=== PATIENT | female | born 1945 | race Two or more races ===

== ENCOUNTER 2017-04-11 20:26 | Inpatient (IN) | payer MEDICARE, MEDICAID ==
[~2017-04-11] VITALS: Ht 162.6 cm; Wt 60.1 kg
[~2017-04-11 20:26] MED LIST: insulin; metoprolol
[2017-04-11] MEDS ORDERED: SODIUM CHLORIDE 0.9% 1,000 ML IVB ONE (20:31)
[2017-04-11 20:59] LABS: Basophils # (auto) 0 uL; Basophils % (auto) 0.2 % (0.0-2.0); CONDITION Y; DEFINITIVE SEE PRINTOUT; Eosinophils # (auto) 0 uL; Hematocrit 32.6 % (36.0-46.0); Lymphocytes % (auto) 32.8 % (10.0-50.0); Mean Corpuscular Hemoglobin 35.8 pg (28.0-32.0); Mean Corpuscular Hgb Conc. 33.6 g/dL (32.0-36.0); Mean Corpuscular Volume 106.3 fL (80.0-100.0); Mean Platelet Volume 10.1 fL (7.4-10.4); Monocytes # (auto) 0.4 uL; Monocytes % (auto) 6.7 % (0.0-12.0); Neutrophils # (auto) 3.8 uL; Neutrophils % (auto) 60.3 % (37.0-80.0); Platelet Count (auto) 127 10^3/uL (140-450); Red Cell Distribution Width 13.9 % (11.6-16.0); White Blood Cell 6.2 10^3/uL (4.4-10.8)
[2017-04-11] MEDS ORDERED: SODIUM CHLORIDE 0.9% 500 ML IVB ONE (21:08)
[2017-04-11 21:16] LABS: INR 1.04 (0.9-1.15); Partial Thromboplastin Time 23.1 sec (22.64-33.71); Prothrombin Time 11.3 sec (9.37-12.3)
[2017-04-11 21:21] LABS: Albumin 3.5 g/dL (3.4-5.0); BUN/Creatinine Ratio 7.5; Bilirubin, Total 0.5 mg/dL (0.2-1.0); Calcium 9.2 mg/dL (8.5-10.1); Magnesium 3.1 mg/dL (1.6-2.6); Total Protein 7.2 g/dL (6.4-8.2)
[2017-04-11 21:25] LABS: B-Type Natriuretic Peptide 730.33 pg/mL (0-100)
[2017-04-11 21:26] LABS: Potassium 5.6 mmol/L (3.5-5.1)
[2017-04-11 21:29] LABS: Temperature: 23.9 C (20.0-25.0)
[2017-04-11] MEDS ORDERED: InsuLIN REG 1unit/0.01ml Soln (100units/ml) IV ONE (22:15)
[2017-04-12] MEDS ORDERED: NITROGLYCERIN 0.4 MG SL TAB SL PRN (00:15)
[2017-04-12] MEDS ORDERED: MORPHINE SULF INJ 2 MG/ML SYRINGE 1ML IV PRN (00:15)
[2017-04-12] MEDS ORDERED: SODIUM POLYSTYRENE SULF 15GM/60ML SUSP PO ONE ×2 (00:15→06:00)
[2017-04-12] MEDS ORDERED: ONDANSETRON HCL 4 MG/2 ML VIAL IV PRN (00:15)
[2017-04-12] MEDS ORDERED: FUROSEMIDE 40 MG/4 ML VIAL IV ONE (00:15)
[2017-04-12] MEDS ORDERED: TEMAZEPAM 15 MG CAP PO PRN (00:15)
[2017-04-12] MEDS ORDERED: DEXTROSE (50%) 50ML SYRG IV PRN (00:15)
[2017-04-12] MEDS ORDERED: ACETAMINOPHEN 325 MG TAB PO PRN (00:15)
[2017-04-12] MEDS: HYDROcodone-ACET 5/325MG TAB PO PRN (00:46)
[2017-04-12] MEDS ORDERED: InsuLIN REG 1unit/0.01ml Soln (100units/ml) IV ONE (06:00)
[2017-04-12] MEDS ORDERED: SODIUM BICARBONATE 8.4 % INJ 50ML VIAL IV ONE (06:00)
[2017-04-12] MEDS: InsuLIN REG 1unit/0.01ml Soln (100units/ml) SC SCH ×3 (06:00→18:00)
[2017-04-12] MEDS ORDERED: DEXTROSE (50%) 50ML SYRG IV ONE (06:00)
[2017-04-12] MEDS ORDERED: CALCIUM GLUC 4.65 MEQ/10ML 4.65 MEQ in SODIUM CHL 0.9% 50 ML IV ONE (06:00)
[2017-04-12] MEDS ORDERED: SODIUM BICARBONATE 8.4% INJ 50ML SYRINGE ONE (06:06)
[2017-04-12] MEDS: ACCU-CHEK COMFORT CURVE STRIP VI SCH ×3 (06:07→18:00)
[2017-04-12] MEDS ORDERED: CALCIUM GLUC 4.65 MEQ/10ML 10 ML IV ONE (06:27)
[2017-04-12] MEDS: SEVELAMER 800 MG TAB PO SCH ×3 (08:00→18:43)
[2017-04-12] MEDS: CALCIUM ACETATE 667 MG CAP PO SCH ×3 (08:00→18:43)
[2017-04-12] MEDS ORDERED: FAMOTIDINE 20 MG TAB PO SCH (10:00)
[2017-04-12] MEDS: FAMOTIDINE 20 MG TAB PO SCH (10:01)
[2017-04-12] MEDS: ENOXAPARIN SOD 30 MG/0.3 ML SYRINGE SC SCH (10:02)
[2017-04-12 18:45] VITALS: BP 151/72
[2017-04-12 20:18] VITALS: BP 151/72
[2017-04-12 22:00] VITALS: BP 148/62
[2017-04-13] VITALS (7 sets, daily range): BP systolic 125–162; BP diastolic 48–71
[2017-04-13] MEDS: ACCU-CHEK COMFORT CURVE STRIP VI SCH ×5 (00:21→22:14)
[2017-04-13] MEDS: InsuLIN REG 1unit/0.01ml Soln (100units/ml) SC SCH ×5 (00:22→22:15)
[2017-04-13 07:27] LABS: Basophils # (auto) 0 uL; Basophils % (auto) 0.2 % (0.0-2.0); CONDITION Y; DEFINITIVE SEE PRINTOUT; Eosinophils # (auto) 0 uL; Hemoglobin 9.5 g/dL (12.2-16.2); Lymphocytes % (auto) 14.7 % (10.0-50.0); Mean Corpuscular Hemoglobin 36.7 pg (28.0-32.0); Mean Platelet Volume 10.3 fL (7.4-10.4); Monocytes # (auto) 0.4 uL; Monocytes % (auto) 6.7 % (0.0-12.0); Neutrophils # (auto) 5.2 uL; Neutrophils % (auto) 78.4 % (37.0-80.0); Platelet Count (auto) 99 10^3/uL (140-450); Red Cell Distribution Width 14.4 % (11.6-16.0); White Blood Cell 6.6 10^3/uL (4.4-10.8)
[2017-04-13] MEDS: SEVELAMER 800 MG TAB PO SCH ×3 (08:00→18:05)
[2017-04-13] MEDS: CALCIUM ACETATE 667 MG CAP PO SCH ×3 (08:00→18:05)
[2017-04-13 08:08] LABS: Albumin 3.4 g/dL (3.4-5.0); BUN/Creatinine Ratio 7.5; Bilirubin, Total 0.5 mg/dL (0.2-1.0); Calcium 8.9 mg/dL (8.5-10.1); Potassium 5.3 mmol/L (3.5-5.1)
[2017-04-13] MEDS: ENOXAPARIN SOD 30 MG/0.3 ML SYRINGE SC SCH (10:00)
[2017-04-13] MEDS: FAMOTIDINE 20 MG TAB PO SCH (10:00)
[2017-04-13] MEDS ORDERED: EPOETIN ALFA 10,000 UNIT/1 ML VIAL IV ONE (11:00)
[2017-04-13] MEDS ORDERED: DEXTROSE (50%) 50ML SYRG IV PRN (13:45)
[2017-04-13] MEDS: HYDROcodone-ACET 5/325MG TAB PO PRN ×2 (15:00→21:45)
[2017-04-14] VITALS (7 sets, daily range): BP systolic 99–170; BP diastolic 43–67
[2017-04-14] MEDS: InsuLIN REG 1unit/0.01ml Soln (100units/ml) SC SCH ×4 (06:27→22:27)
[2017-04-14] MEDS: ACCU-CHEK COMFORT CURVE STRIP VI SCH ×4 (06:27→22:26)
[2017-04-14] MEDS: HYDROcodone-ACET 5/325MG TAB PO PRN (06:28)
[2017-04-14 07:37] LABS: Basophils # (auto) 0 uL; Basophils % (auto) 0.2 % (0.0-2.0); CONDITION Y; DEFINITIVE SEE PRINTOUT; Eosinophils # (auto) 0 uL; Hematocrit 28.6 % (36.0-46.0); Hemoglobin 9.8 g/dL (12.2-16.2); Lymphocytes # (auto) 1.4 uL; Lymphocytes % (auto) 24.2 % (10.0-50.0); Mean Corpuscular Hemoglobin 37.9 pg (28.0-32.0); Mean Corpuscular Hgb Conc. 34.2 g/dL (32.0-36.0); Mean Corpuscular Volume 110.8 fL (80.0-100.0); Mean Platelet Volume 10.4 fL (7.4-10.4); Monocytes # (auto) 0.5 uL; Monocytes % (auto) 8.9 % (0.0-12.0); Neutrophils # (auto) 3.9 uL; Neutrophils % (auto) 66.7 % (37.0-80.0); Platelet Count (auto) 94 10^3/uL (140-450); Red Cell Distribution Width 14.2 % (11.6-16.0); White Blood Cell 5.8 10^3/uL (4.4-10.8)
[2017-04-14 07:49] LABS: BUN/Creatinine Ratio 6.5; Calcium 8.4 mg/dL (8.5-10.1); Potassium 4.5 mmol/L (3.5-5.1)
[2017-04-14] MEDS: HEPARIN SODIUM (PORCINE) 5000 UNITS/ML 1ML VIAL SC SCH ×2 (09:55→22:26)
[2017-04-14] MEDS: SEVELAMER 800 MG TAB PO SCH ×3 (09:56→17:57)
[2017-04-14] MEDS: CALCIUM ACETATE 667 MG CAP PO SCH ×3 (09:56→17:56)
[2017-04-14] MEDS: FAMOTIDINE 20 MG TAB PO SCH (09:56)
[2017-04-14] MEDS ORDERED: B-COMPLEX W/ C & FOLIC ACID(NEPHROVITE TAB) PO ONE (14:30)
[2017-04-14] MEDS ORDERED: ASCORBIC ACID 500 MG TAB PO ONE (14:30)
[2017-04-14 17:09] LABS: Allen Test Yes; Base Excess 7.4 mmol/L (-2.0-2.0); Blood 02Sat 84.8 % (96-100); Blood COHb 0.4 % (0.5-1.5); HCO3 31.9 mmol/L (22-26.0); HHb 15.1 % (0.0-5.0); MODE ROOM AIR; O2Hb 84.5 % (94.0-97.0); PCO2 44.7 mmHg (35.0-45.0); PCO2(T) 44.7 mmHg (35.0-45.0); PO2 50.2 mmHg (80.0-100.0); PO2(T) 50.2 mmHg (80.0-100.0); Room 0246T; Sample Type Arterial; pH 7.471 (7.350-7.450)
[2017-04-14] MEDS: ASCORBIC ACID 500 MG TAB PO SCH (22:25)
[2017-04-15 05:00] VITALS: BP 152/63
[2017-04-15] MEDS: ACCU-CHEK COMFORT CURVE STRIP VI SCH ×4 (06:02→21:57)
[2017-04-15] MEDS: InsuLIN REG 1unit/0.01ml Soln (100units/ml) SC SCH ×4 (06:02→21:57)
[2017-04-15 08:00] VITALS: BP 173/66
[2017-04-15 08:51] VITALS: BP 173/66
[2017-04-15] MEDS: B-COMPLEX W/ C & FOLIC ACID(NEPHROVITE TAB) PO SCH (10:01)
[2017-04-15] MEDS: ASCORBIC ACID 500 MG TAB PO SCH ×2 (10:01→21:56)
[2017-04-15] MEDS: FAMOTIDINE 20 MG TAB PO SCH (10:01)
[2017-04-15] MEDS: HEPARIN SODIUM (PORCINE) 5000 UNITS/ML 1ML VIAL SC SCH ×2 (10:02→21:57)
[2017-04-15] MEDS: SEVELAMER 800 MG TAB PO SCH ×3 (10:02→17:36)
[2017-04-15] MEDS: CALCIUM ACETATE 667 MG CAP PO SCH ×3 (10:02→17:36)
[2017-04-15 12:42] VITALS: BP 181/59
[2017-04-15] MEDS: HYDROcodone-ACET 5/325MG TAB PO PRN (15:57)
[2017-04-15 16:32] VITALS: BP 113/52
[2017-04-15 21:30] VITALS: BP 158/57
[2017-04-16 05:00] VITALS: BP 146/44
[2017-04-16] MEDS: InsuLIN REG 1unit/0.01ml Soln (100units/ml) SC SCH ×2 (05:35→11:30)
[2017-04-16] MEDS: ACCU-CHEK COMFORT CURVE STRIP VI SCH ×2 (05:35→11:30)
[2017-04-16 08:00] VITALS: BP 136/36
[2017-04-16] MEDS: SEVELAMER 800 MG TAB PO SCH ×2 (08:21→12:00)
[2017-04-16] MEDS: CALCIUM ACETATE 667 MG CAP PO SCH ×2 (08:21→12:00)
[2017-04-16 09:00] VITALS: BP 136/36
[2017-04-16] MEDS: B-COMPLEX W/ C & FOLIC ACID(NEPHROVITE TAB) PO SCH (10:04)
[2017-04-16] MEDS: FAMOTIDINE 20 MG TAB PO SCH (10:05)
[2017-04-16] MEDS: ASCORBIC ACID 500 MG TAB PO SCH (10:05)
[2017-04-16] MEDS: HEPARIN SODIUM (PORCINE) 5000 UNITS/ML 1ML VIAL SC SCH (10:07)
[2017-04-16] MEDS: HYDROcodone-ACET 5/325MG TAB PO PRN (10:23)
[2017-04-16 13:00] VITALS: BP 132/42
[2017-04-16 15:19] LABS: Allen Test Yes; Base Excess 3.4 mmol/L (-2.0-2.0); Blood 02Sat 81.8 % (96-100); Blood COHb 0.3 % (0.5-1.5); Blood MetHb 0.1 % (0.0-1.5); HCO3 27.2 mmol/L (22-26.0); HHb 18.1 % (0.0-5.0); MODE RA; O2Hb 81.5 % (94.0-97.0); PCO2 38.4 mmHg (35.0-45.0); PCO2(T) 38.4 mmHg (35.0-45.0); PO2 48.5 mmHg (80.0-100.0); PO2(T) 48.5 mmHg (80.0-100.0); Room 0246T; Sample Type Arterial; pH 7.468 (7.350-7.450)
== END 2017-04-16 15:45 | disposition home or self-care (01) | DRG 52 ==
LOC: EDBD 20:26 → ER 20:31 → TELE 20:32 → TELE-EAST 04-12 18:21
PROVIDERS: ADMIT Nurse Practitioner; ATTEND Internal Medicine
PROC: 5A1D60Z (ICD-10-PCS; principal; 2017-04-13)
DX: G93.41 Metabolic encephalopathy (principal); J96.21 Acute and chronic respiratory failure with hypoxia; I44.2 Atrioventricular block, complete; I50.43 Acute on chronic combined systolic (congestive) and diastolic (congestive) heart failure; N18.6 End stage renal disease; G31.9 Degenerative disease of nervous system, unspecified; I27.2 Other secondary pulmonary hypertension; E11.22 Type 2 diabetes mellitus with diabetic chronic kidney disease; E87.5 Hyperkalemia; I13.2 Hypertensive heart and chronic kidney disease with heart failure and with stage 5 chronic kidney disease, or end stage renal disease; Z99.2 Dependence on renal dialysis; D63.1 Anemia in chronic kidney disease; E03.9 Hypothyroidism, unspecified; Z82.49 Family history of ischemic heart disease and other diseases of the circulatory system; Z83.3 Family history of diabetes mellitus; Z79.4 Long term (current) use of insulin; Z79.899 Other long term (current) drug therapy
CPT/HCPCS: 36415; 36600; 70450; 71010; 76705; 78582; 80048; 80053; 80061; 82805; 82962; 83036; 83605; 83735; 83880; 84132; 84443; 84484; 85025; 85379; 85610; 85730; 87040; 90935; 93005; 93306; 94761; 96361; 96365; 96372; 96375; 96376; J0885; J1815